=== PATIENT | female | born 1935 | race Caucasian/White ===

== ENCOUNTER 2019-09-23 01:38 | Emergency (ER) | payer MEDICARE, OTHER ==
[~2019-09-23] VITALS: Ht 160 cm; Wt 65.8 kg
[2019-09-23] MEDS ORDERED: HYDROcodone-ACET 5/325MG TAB PO ONE (03:30)
[2019-09-23 06:01] VITALS: BP 96/53
== END 2019-09-23 07:55 | disposition home or self-care (01) ==
LOC: ER 01:44
DX: S93.402A Sprain of unspecified ligament of left ankle, initial encounter (principal); S90.32XA Contusion of left foot, initial encounter; M25.511 Pain in right shoulder; I10 Essential (primary) hypertension; I48.91 Unspecified atrial fibrillation; V09.20XA Pedestrian injured in traffic accident involving unspecified motor vehicles, initial encounter; Y93.89 Activity, other specified; Y92.89 Other specified places as the place of occurrence of the external cause; Y99.8 Other external cause status
CPT/HCPCS: 73030; 73630

== ENCOUNTER → 2020-04-12 | Emergency (ER) | payer MEDICARE ==
[~2020-04-12] VITALS: Ht 160 cm; Wt 38.6 kg
[2020-04-12 09:21] VITALS: BP 123/69
== END | disposition home or self-care (01) ==
LOC: ER 09:12
DX: S52.501A Unspecified fracture of the lower end of right radius, initial encounter for closed fracture (principal); S52.601A Unspecified fracture of lower end of right ulna, initial encounter for closed fracture; W19.XXXA Unspecified fall, initial encounter; Y93.89 Activity, other specified; Y92.89 Other specified places as the place of occurrence of the external cause; Y99.8 Other external cause status
CPT/HCPCS: 29125; 73110; 93005

== ENCOUNTER 2021-02-02 11:55 | Inpatient (IN) | payer MEDICARE ==
[~2021-02-02] VITALS: Ht 157.5 cm; Wt 42.3 kg
[2021-02-02] MEDS ORDERED: SODIUM CHLORIDE 0.9% 1,000 ML IV ONE (12:15)
[2021-02-02] MEDS ORDERED: ONDANSETRON HCL 4 MG/2 ML VIAL IV ONE ×2 (12:30→16:15)
[2021-02-02 12:51] LABS: Basophils # (auto) 0 10 ^3/uL (0-0.2); Basophils % (auto) 0.5 % (0.0-2.0); Eosinophils # (auto) 0 10 ^3/uL (0-0.8); Hematocrit 43.1 % (36.0-46.0); Hemoglobin 14.6 g/dL (12.2-16.2); Lymphocytes # (auto) 0.7 10 ^3/uL (0.4-5.4); Lymphocytes % (auto) 9.3 % (10.0-50.0); Mean Corpuscular Hemoglobin 32.9 pg (28.0-32.0); Mean Corpuscular Hgb Conc. 33.8 g/dL (32.0-36.0); Mean Corpuscular Volume 97.3 fL (80.0-100.0); Monocytes # (auto) 0.4 10 ^3/uL (0-1.3); Monocytes % (auto) 5.2 % (0.0-12.0); Neutrophils # (auto) 6.7 10 ^3/uL (1.6-8.6); Nucleated Red Blood Cells % 0.1 %; Red Blood Cells 4.42 10^6/uL (4.0-5.20); Red Cell Distribution Width 15.5 % (11.8-14.3); White Blood Cell 7.9 10^3/uL (4.4-10.8)
[2021-02-02 13:06] LABS: Albumin 2.8 g/dL (3.4-5.0); Anion Gap 11 (5-15); Blood Urea Nitrogen 15 mg/dL (7-18); Calcium 8.9 mg/dL (8.5-10.1); Carbon Dioxide 26 mmol/L (21-32); Chloride 103 mmol/L (98-107); Glucose 121 mg/dL (74-106); Potassium 3.3 mmol/L (3.5-5.1); Sodium 140 mmol/L (136-145)
[2021-02-02 13:10] LABS: INR 1.29 (0.9-1.15); Partial Thromboplastin Time 28.2 sec (23.0-31.2)
[2021-02-02 13:14] LABS: Alanine Aminotransferase 11 U/L (13-56); Alkaline Phosphatase 154 U/L (45-117); Aspartate Aminotransferase 21 U/L (15-37); BUN/Creatinine Ratio 23.8; GFR African American 115 mL/min; GFR Non-African American 95 mL/min; Total Protein 6.3 g/dL (6.4-8.2)
[2021-02-02] MEDS ORDERED: FUROSEMIDE 40 MG/4 ML VIAL IV ONE (15:00)
[2021-02-02] MEDS ORDERED: POTASSIUM CHL 20MEQ/100ML 100 ML IV ONE (15:00)
[2021-02-02 15:46] LABS: Urine WBC None Seen /hpf (0 - 5)
[2021-02-02 16:09] LABS: Urine Amorphous Crystal MOD /hpf (None Seen); Urine Bacteria NONE SEEN /hpf (None Seen); Urine Blood Negative /uL (Negative); Urine Specific Gravity 1.011 (1.001-1.035)
[2021-02-02] MEDS ORDERED: MORPHINE SULFATE INJECTION 2 MG/ML SYRG IV ONE (16:15)
[2021-02-02] MEDS ORDERED: ONDANSETRON HCL 4 MG/2 ML VIAL IV PRN (18:30)
[2021-02-02] MEDS ORDERED: MORPHINE SULFATE INJECTION 2 MG/ML SYRG IV PRN (18:30)
[2021-02-02] MEDS ORDERED: DOCUSATE CALCIUM 240 MG CAP PO PRN (18:30)
[2021-02-02] MEDS ORDERED: NITROGLYCERIN 0.4 MG SL TAB SL PRN (18:30)
[2021-02-02] MEDS ORDERED: LORazepam 0.5 MG TAB PO PRN (18:30)
[2021-02-02] MEDS ORDERED: ACETAMINOPHEN 325 MG TAB PO PRN (18:30)
[2021-02-02] MEDS: SODIUM CHLORIDE 0.9% 1,000 ML IV SCH (19:04)
[2021-02-02 20:00] VITALS: BP 156/86
[2021-02-02] MEDS: MORPHINE SULFATE INJECTION 2 MG/ML SYRG IV PRN (20:48)
[2021-02-02 21:53] VITALS: BP 156/86
[2021-02-02] MEDS: InsuLIN REG 1unit/0.01ml Soln (100units/ml) SC SCH (22:00)
[2021-02-02] MEDS: ACCU-CHEK COMFORT CURVE STRIP VI SCH (22:00)
[2021-02-03 02:56] VITALS: BP 151/98
[2021-02-03 04:54] VITALS: BP 127/90
[2021-02-03 06:15] LABS: Basophils # (auto) 0 10 ^3/uL (0-0.2); Basophils % (auto) 0.1 % (0.0-2.0); Eosinophils # (auto) 0 10 ^3/uL (0-0.8); Hematocrit 41.8 % (36.0-46.0); Hemoglobin 14.2 g/dL (12.2-16.2); Lymphocytes # (auto) 0.7 10 ^3/uL (0.4-5.4); Lymphocytes % (auto) 7.4 % (10.0-50.0); Mean Corpuscular Hemoglobin 32.7 pg (28.0-32.0); Mean Corpuscular Hgb Conc. 33.9 g/dL (32.0-36.0); Mean Corpuscular Volume 96.7 fL (80.0-100.0); Monocytes # (auto) 0.9 10 ^3/uL (0-1.3); Monocytes % (auto) 8.8 % (0.0-12.0); Neutrophils # (auto) 8.3 10 ^3/uL (1.6-8.6); Neutrophils % (auto) 83.7 % (37.0-80.0); Red Blood Cells 4.33 10^6/uL (4.0-5.20); Red Cell Distribution Width 15.5 % (11.8-14.3)
[2021-02-03 06:37] LABS: Potassium 3.1 mmol/L (3.5-5.1)
[2021-02-03 06:46] LABS: Bilirubin, Total 2.5 mg/dL (0.2-1.0); Total Protein 6.6 g/dL (6.4-8.2)
[2021-02-03] MEDS: InsuLIN REG 1unit/0.01ml Soln (100units/ml) SC SCH ×4 (06:56→22:00)
[2021-02-03] MEDS: ACCU-CHEK COMFORT CURVE STRIP VI SCH ×4 (06:56→21:54)
[2021-02-03] MEDS: SODIUM CHLORIDE 0.9% 1,000 ML IV SCH ×2 (07:50→21:18)
[2021-02-03 09:00] VITALS: BP 154/87
[2021-02-03] MEDS: LABETALOL HCL 5 MG/ML 4ML SYRINGE IV PRN ×2 (09:29→22:33)
[2021-02-03] MEDS ORDERED: DIGOXIN (250MCG/ML) 2 ML AMPULE IV ONE (10:00)
[2021-02-03] MEDS ORDERED: ENOXAPARIN SOD 30 MG/0.3 ML SYRINGE SC SCH (10:00)
[2021-02-03] MEDS ORDERED: PANTOPRAZOLE 40 MG TAB PO SCH (10:00)
[2021-02-03] MEDS ORDERED: POTASSIUM EFFERVESENT TAB 25 MEQ PO SCH (10:00)
[2021-02-03] MEDS ORDERED: AMIODARONE HCL 150 MG in D5W 5% 100 ML IV ONE (10:10)
[2021-02-03] MEDS ORDERED: AMIODARONE 450mg/250ml AE 250 ML IV SCH (10:15)
[2021-02-03] MEDS ORDERED: FUROSEMIDE 20 MG/2 ML VIAL IV ONE (11:30)
[2021-02-03 13:00] VITALS: BP 144/76
[2021-02-03] MEDS: LORazepam 2MG/ML-1ML VIAL IV PRN ×2 (14:31→21:55)
[2021-02-03 17:00] VITALS: BP 118/66
[2021-02-03] MEDS: AMIODARONE 450mg/250ml AE 250 ML IV SCH (18:47)
[2021-02-03 18:56] VITALS: BP 130/93
[2021-02-03] MEDS ORDERED: ENOXAPARIN SOD 40 MG/0.4 ML SYRINGE SC SCH (22:00)
[2021-02-03] MEDS ORDERED: PATIENTS OWN MEDICATION (eliquis 5 MG) PO SCH (22:00)
[2021-02-03] MEDS ORDERED: APIXABAN 2.5 MG TAB PO SCH (22:00)
[2021-02-03] MEDS: D5W/SOD CHL 0.45% 1,000 ML IV SCH (22:15)
[2021-02-04] VITALS: BP 152/73
[2021-02-04] MEDS: MORPHINE SULFATE INJECTION 2 MG/ML SYRG IV PRN ×3 (03:02→20:23)
[2021-02-04 05:58] VITALS: BP 149/75
[2021-02-04] MEDS: ACCU-CHEK COMFORT CURVE STRIP VI SCH ×4 (06:33→22:04)
[2021-02-04] MEDS: InsuLIN REG 1unit/0.01ml Soln (100units/ml) SC SCH ×4 (06:33→22:00)
[2021-02-04 09:00] VITALS: BP 152/110
[2021-02-04] MEDS: POTASSIUM CHL 20MEQ/100ML 100 ML IV SCH ×2 (10:41→12:38)
[2021-02-04] MEDS: ENOXAPARIN SOD 40 MG/0.4 ML SYRINGE SC SCH ×2 (10:41→22:00)
[2021-02-04] MEDS: AMIODARONE 450mg/250ml AE 250 ML IV SCH ×2 (10:41→22:05)
[2021-02-04 13:12] VITALS: BP 139/86
[2021-02-04 17:00] VITALS: BP 124/99
[2021-02-04] MEDS: FUROSEMIDE 20 MG/2 ML VIAL IV SCH (18:04)
[2021-02-04] MEDS: D5W/SOD CHL 0.45% 1,000 ML IV SCH (18:05)
[2021-02-04 23:00] VITALS: BP 144/82
[2021-02-05] MEDS ORDERED: ACETAMINOPHEN 650 MG RECT SUPP PR ONE (02:45)
[2021-02-05 05:00] VITALS: BP 145/80
[2021-02-05] MEDS: InsuLIN REG 1unit/0.01ml Soln (100units/ml) SC SCH ×4 (06:27→21:45)
[2021-02-05] MEDS: ACCU-CHEK COMFORT CURVE STRIP VI SCH ×4 (06:27→21:45)
[2021-02-05] MEDS: DEXTROSE (50%) 50ML SYRG IV PRN (06:29)
[2021-02-05] MEDS ORDERED: DEXTROSE 10% 1,000 ML IV ONE (06:45)
[2021-02-05 09:00] VITALS: BP 131/70
[2021-02-05] MEDS: ENOXAPARIN SOD 40 MG/0.4 ML SYRINGE SC SCH ×2 (10:38→21:46)
[2021-02-05] MEDS: FUROSEMIDE 20 MG/2 ML VIAL IV SCH (10:38)
[2021-02-05 12:30] VITALS: BP 133/88
[2021-02-05] MEDS: MORPHINE SULFATE INJECTION 2 MG/ML SYRG IV PRN ×2 (12:53→20:58)
[2021-02-05] MEDS: D5W/SOD CHL 0.45% 1,000 ML IV SCH (14:15)
[2021-02-05 17:25] VITALS: BP 132/72
[2021-02-05] MEDS: CARVEDILOL 3.125 MG TAB PO SCH (21:43)
[2021-02-05 21:55] VITALS: BP 114/54
[2021-02-06] MEDS: MORPHINE SULFATE INJECTION 2 MG/ML SYRG IV PRN ×5 (01:07→21:06)
[2021-02-06 05:00] VITALS: BP 140/80
[2021-02-06] MEDS: ACCU-CHEK COMFORT CURVE STRIP VI SCH ×4 (05:41→21:04)
[2021-02-06] MEDS: InsuLIN REG 1unit/0.01ml Soln (100units/ml) SC SCH ×4 (05:41→21:05)
[2021-02-06 08:34] VITALS: BP 96/43
[2021-02-06] MEDS: CARVEDILOL 3.125 MG TAB PO SCH ×2 (10:00→22:00)
[2021-02-06] MEDS: FUROSEMIDE 20 MG/2 ML VIAL IV SCH (10:00)
[2021-02-06] MEDS: ENOXAPARIN SOD 40 MG/0.4 ML SYRINGE SC SCH ×2 (10:18→21:05)
[2021-02-06] MEDS: D5W/SOD CHL 0.45% 1,000 ML IV SCH (10:19)
[2021-02-06 12:38] VITALS: BP 81/53
[2021-02-06 16:44] VITALS: BP 118/63
[2021-02-06 22:51] VITALS: BP 108/74
[2021-02-07] MEDS: MORPHINE SULFATE INJECTION 2 MG/ML SYRG IV PRN ×3 (01:37→10:30)
[2021-02-07 05:22] VITALS: BP 131/80
[2021-02-07] MEDS: ACCU-CHEK COMFORT CURVE STRIP VI SCH ×4 (05:42→21:38)
[2021-02-07] MEDS: D5W/SOD CHL 0.45% 1,000 ML IV SCH (05:42)
[2021-02-07] MEDS: InsuLIN REG 1unit/0.01ml Soln (100units/ml) SC SCH ×4 (05:42→22:00)
[2021-02-07 08:30] VITALS: BP 118/67
[2021-02-07] MEDS: FUROSEMIDE 20 MG/2 ML VIAL IV SCH (10:00)
[2021-02-07] MEDS: CARVEDILOL 3.125 MG TAB PO SCH ×2 (10:00→22:00)
[2021-02-07] MEDS: ENOXAPARIN SOD 40 MG/0.4 ML SYRINGE SC SCH ×2 (10:29→21:38)
[2021-02-07 12:30] VITALS: BP 101/61
[2021-02-07 16:58] VITALS: BP 95/64
[2021-02-07 22:00] VITALS: BP 107/65
[2021-02-07] MEDS: DEXTROSE (50%) 50ML SYRG IV PRN (22:10)
[2021-02-08] MEDS: D5W/SOD CHL 0.45% 1,000 ML IV SCH ×2 (01:48→22:19)
[2021-02-08 05:00] VITALS: BP 113/66
[2021-02-08] MEDS: InsuLIN REG 1unit/0.01ml Soln (100units/ml) SC SCH ×4 (06:23→22:00)
[2021-02-08] MEDS: DEXTROSE (50%) 50ML SYRG IV PRN (06:23)
[2021-02-08] MEDS: ACCU-CHEK COMFORT CURVE STRIP VI SCH ×4 (06:23→22:19)
[2021-02-08 08:00] VITALS: BP 122/72
[2021-02-08 09:00] VITALS: BP 122/72
[2021-02-08] MEDS: ENOXAPARIN SOD 40 MG/0.4 ML SYRINGE SC SCH ×2 (09:10→22:18)
[2021-02-08] MEDS: CARVEDILOL 3.125 MG TAB PO SCH ×2 (09:10→22:00)
[2021-02-08] MEDS: FUROSEMIDE 20 MG/2 ML VIAL IV SCH (09:21)
[2021-02-08 12:05] VITALS: BP 106/61
[2021-02-08 17:00] VITALS: BP 139/75
[2021-02-08] MEDS: LORazepam 2MG/ML-1ML VIAL IV PRN (19:55)
[2021-02-08 21:48] VITALS: BP 134/56
[2021-02-09] VITALS (8 sets, daily range): BP systolic 131–145; BP diastolic 71–89
[2021-02-09] MEDS: InsuLIN REG 1unit/0.01ml Soln (100units/ml) SC SCH ×4 (06:38→20:54)
[2021-02-09] MEDS: ACCU-CHEK COMFORT CURVE STRIP VI SCH ×4 (06:38→20:54)
[2021-02-09] MEDS: ENOXAPARIN SOD 40 MG/0.4 ML SYRINGE SC SCH ×2 (09:31→21:33)
[2021-02-09] MEDS: CARVEDILOL 3.125 MG TAB PO SCH ×2 (09:32→20:54)
[2021-02-09] MEDS: FUROSEMIDE 20 MG/2 ML VIAL IV SCH (09:33)
[2021-02-09] MEDS: D5W/SOD CHL 0.45% 1,000 ML IV SCH (17:23)
[2021-02-09] MEDS: LORazepam 2MG/ML-1ML VIAL IV PRN (18:32)
[2021-02-10 05:00] VITALS: BP 143/77
[2021-02-10] MEDS: InsuLIN REG 1unit/0.01ml Soln (100units/ml) SC SCH ×4 (06:06→22:00)
[2021-02-10] MEDS: ACCU-CHEK COMFORT CURVE STRIP VI SCH ×4 (06:06→22:35)
[2021-02-10 08:00] VITALS: BP 143/75
[2021-02-10 08:30] VITALS: BP 143/75
[2021-02-10] MEDS: ENOXAPARIN SOD 40 MG/0.4 ML SYRINGE SC SCH ×2 (09:29→22:35)
[2021-02-10] MEDS: CARVEDILOL 3.125 MG TAB PO SCH ×2 (09:30→22:00)
[2021-02-10] MEDS: FUROSEMIDE 20 MG/2 ML VIAL IV SCH (10:00)
[2021-02-10 12:30] VITALS: BP 118/91
[2021-02-10] MEDS: D5W/SOD CHL 0.45% 1,000 ML IV SCH (16:24)
[2021-02-10 16:32] VITALS: BP 133/87
[2021-02-10 21:49] VITALS: BP 133/81
[2021-02-11 05:34] VITALS: BP 147/81
[2021-02-11] MEDS: ACCU-CHEK COMFORT CURVE STRIP VI SCH ×4 (06:23→21:37)
[2021-02-11] MEDS: InsuLIN REG 1unit/0.01ml Soln (100units/ml) SC SCH ×4 (06:23→21:36)
[2021-02-11 08:00] VITALS: BP 142/80
[2021-02-11 09:00] VITALS: BP 142/80
[2021-02-11] MEDS: ENOXAPARIN SOD 40 MG/0.4 ML SYRINGE SC SCH ×3 (09:36→21:37)
[2021-02-11] MEDS: CARVEDILOL 3.125 MG TAB PO SCH ×2 (09:36→21:36)
[2021-02-11] MEDS: FUROSEMIDE 20 MG/2 ML VIAL IV SCH ×2 (09:37→09:44)
[2021-02-11] MEDS: D5W/SOD CHL 0.45% 1,000 ML IV SCH (09:45)
[2021-02-11 13:00] VITALS: BP 142/84
[2021-02-11 17:00] VITALS: BP 116/67
[2021-02-11 21:42] VITALS: BP 126/65
[2021-02-12 05:00] VITALS: BP 143/77
[2021-02-12] MEDS: InsuLIN REG 1unit/0.01ml Soln (100units/ml) SC SCH ×3 (06:01→17:40)
[2021-02-12] MEDS: D5W/SOD CHL 0.45% 1,000 ML IV SCH ×2 (06:01→17:29)
[2021-02-12] MEDS: ACCU-CHEK COMFORT CURVE STRIP VI SCH ×3 (06:01→17:41)
[2021-02-12 08:43] VITALS: BP 127/79
[2021-02-12] MEDS: FUROSEMIDE 20 MG/2 ML VIAL IV SCH (10:00)
[2021-02-12] MEDS: CARVEDILOL 3.125 MG TAB PO SCH (10:00)
[2021-02-12] MEDS: ENOXAPARIN SOD 40 MG/0.4 ML SYRINGE SC SCH (10:00)
[2021-02-12 12:36] VITALS: BP 117/66
[2021-02-12 16:35] VITALS: BP 133/73
[2021-02-12 18:09] VITALS: BP 133/73
[2021-02-12 22:01] VITALS: BP 135/81
== END 2021-02-12 21:41 | disposition hospice, home (50) | DRG 291 ==
LOC: ER 11:55 → EDBD 11:55 → TELE 18:44 → TELE-CENTR 20:24 → TELE-EAST 02-03 01:59
PROVIDERS: ADMIT Family Medicine; ATTEND Family Medicine
DX: I11.0 Hypertensive heart disease with heart failure (principal); U07.1 COVID-19; E43 Unspecified severe protein-calorie malnutrition; Z68.1 Body mass index [BMI] 19.9 or less, adult; R64 Cachexia; R62.7 Adult failure to thrive; I50.23 Acute on chronic systolic (congestive) heart failure; E86.0 Dehydration; I48.91 Unspecified atrial fibrillation; E87.6 Hypokalemia; R73.9 Hyperglycemia, unspecified; Z88.0 Allergy status to penicillin; Z79.891 Long term (current) use of opiate analgesic; Z88.8 Allergy status to other drugs, medicaments and biological substances; Z79.899 Other long term (current) drug therapy; Z79.01 Long term (current) use of anticoagulants
CPT/HCPCS: 36415; 36600; 71045; 80053; 81001; 82805; 82962; 83880; 84443; 84484; 85025; 85379; 85610; 85730; 87081; 87426; 93005; 93970; 96361; 96365; 96366; 96375; 96376; G0378; J2405; J3480; J3490; J7060